=== PATIENT | female | born 1955 | race Caucasian/White ===

== ENCOUNTER 2019-10-21 16:38 | Outpatient (CLI) | payer OTHER | END 2019-10-21 16:40 | LOC: D.MAMMO 16:38 | PROVIDERS: ATTEND Family Medicine | DX: Z12.31 Encounter for screening mammogram for malignant neoplasm of breast (principal) ==

== ENCOUNTER → 2019-10-29 10:45 | Outpatient (CLI) | payer OTHER | END | disposition home or self-care (01) | LOC: D.US 10:45 | PROVIDERS: ATTEND Family Medicine | DX: R92.8 Other abnormal and inconclusive findings on diagnostic imaging of breast (principal); N63.21 Unspecified lump in the left breast, upper outer quadrant ==